=== PATIENT | female | born 1980 | race African-American/Black ===

== ENCOUNTER 2017-06-02 17:04 | Emergency (ER) | payer OTHER, BC ==
[~2017-06-02] VITALS: Ht 172.7 cm; Wt 59.4 kg
--- NOTE | ~2017-06-02 | CR20 ---
[facility] A Service of [facility] RADIOLOGY TEXT RESULTS PATIENT: SEPIDEH LUBIN LOCATION: [facility] : 84 UNIT #: [id number] AGE: [address]: Amena Driscoll APRN SEX: F ORDER DR: [id number] [facility] [address] [place], [place] [address] [id number] E MR#: [id number] Acc #: [id number] NAME: SEPIDEH LUBIN. : 1980 SEX: F STUDY DATE/TIME: 06/02/2017 18:18 UNIT: [facility] ROOM: STUDY DESCRIPTION: CR Ankle Min 3 Views Lt Attending Physician: Amena Driscoll A.P.R.N. Ordering Physician: Ed Wilbur Sears M.D. Primary Care Physician: Kvng Hein M.D. MEDICAL IMAGING REPORT This report is preliminary unless electronic signature is present EXAM Left ankle, 3 views. HISTORY Ankle pain onset 3 days ago. Door fell on left ankle one week ago. FINDINGS AP, lateral, and oblique projections of the ankle show satisfactory integrity of the joint mortise with a smooth articular surface. There is no identifiable fracture, dislocation, or radiopaque foreign body. IMPRESSION Normal left ankle. Dictated by... Eliceo Gutierrez M.D. THIS IS AN ELECTRONICALLY VERIFIED REPORT Eliceo Gutierrez M.D. at 06/02/2017 9:40 PM Xuan TD: 06/02/2017 21:01 JOB #: [id number] MEDICAL IMAGING REPORT Page 1 of 1 COPY
[~2017-06-02 17:04] MED LIST: FLEXERIL10 MG PO; IBUPROFEN PO; NAPROXEN375 MG PO; PRILOSEC20 MG PO
== END 2017-06-02 19:40 | disposition home or self-care (01) ==
LOC: CFTX 17:04 → CED 17:04 → CFTX 18:34
DX: S90.02XA Contusion of left ankle, initial encounter (principal); F20.9 Schizophrenia, unspecified; W20.8XXA Other cause of strike by thrown, projected or falling object, initial encounter; Y92.098 Other place in other non-institutional residence as the place of occurrence of the external cause
CPT/HCPCS: 29515; 73610; 99283